=== PATIENT | male | born 1945 ===

== ENCOUNTER 2017-07-25 08:17 | Day surgery (SDC) | payer MEDICARE, MEDICAID ==
[2017-06-10 15:01] VITALS: BMI 21.1
--- NOTE | 2017-07-25 08:53 | CP.SDSHP ---
Same Day Surgery H & P - History Proposed Procedure: colonoscopy - Previous Medical/Surgical History Cardiac: Hypertension, ASHD/CAD Endocrine/Metabolic: Diabetes - Allergies Allergies: Allergies Penicillins Allergy (Mild, Verified 07/25/17 08:37) ANAPHYLAXIS - Date & Time Date: 07/25/17 Time: 08:53 Short Stay Discharge - Short Stay Discharge Admitting Diagnosis/Reason for Visit: HEMORRHAGE OF ANUS AND RECTUM Disposition: HOME/ ROUTINE Referrals: Hemalatha Goodrich MD [Primary Care Provider] -
[2017-07-25] MEDS ORDERED: Propofol 10 mg/ml Inj (20 ML) ONE (09:27)
[2017-07-25] MEDS ORDERED: Lidocaine Hydrochloride 5 ML INJ ONE (09:41)
[2017-07-25] MEDS ORDERED: Lactated Ringer's 500 ML IV SCH (09:45)
[2017-07-25] MEDS ORDERED: ePHEDrine 50 mg/ml Inj ONE (09:57)
[2017-07-25 10:17] VITALS: TEMP 98
[2017-07-25 10:54] VITALS: O2SAT 99
[2017-07-25 12:16] VITALS: BP 107/59; PULSE 88; RESP 14
== END 2017-07-25 11:00 | disposition home or self-care (01) ==
LOC: C.ENDO 08:17
PROVIDERS: ATTEND Colon & Rectal Surgery
DX: K62.5 Hemorrhage of anus and rectum (principal); D12.2 Benign neoplasm of ascending colon; D12.0 Benign neoplasm of cecum; D12.5 Benign neoplasm of sigmoid colon
CPT/HCPCS: 45384; 82948; 88305; J2704; J3010; J7040; J7120